=== PATIENT | male | born 1945 | race Caucasian/White ===

== ENCOUNTER 2023-10-03 13:00 | Outpatient (CLI) | payer MEDICARE, OTHER ==
--- NOTE | 2023-10-03 13:58 | Sleep Patient Instructions ---
Sleep Center Visit Summary - Patient Visit Information Reason for Visit: Initial consult for evaluation of sleep disordered breathing and other sleep issues. - Patient Instructions Instructions Attached: Sleep Study Additional Instructions: You will be completing a sleep study, either an in-lab polysomnography (PSG) or home sleep study (HST). You will follow-up in the sleep care office after the sleep study is completed to hear the results and talk about therapy, if needed. You will be called by our office staff to schedule this appointment, but you may contact us with any questions. - Clinic Information Contact: [facility] [address] [place] [address] [email or web address] T: [phone]
--- NOTE | 2023-10-03 14:02 | SLEEP CARE CONSULTATION ---
Information from patient questionnaire entered by Kayla Ovalle. I have reviewed and concur with the information entered by Kayla Ovalle. This document represents the service I personally performed and the decisions made by me, Qian Peña ARNP. History of Present Illness Service Date and Time: 10/03/2023 1300 Reason for Visit: New patient Chief Complaint: reports: Other (Anel RICHMOND OF [facility] RECOMENDED THE VISIT ) Usual bedtime: 2200 Time it takes to fall asleep: 30MINS Snores at night: No Observed to quit breathing while asleep: No Sleeps alone due to snoring: No Number of times waking at night: 4 Reasons for waking at night: reports: Bathroom, Other (UNKNOWN) Toss, Turn, or Twitch while sleeping: No Recalls having dreams: Yes Usually gets out of bed at: [id number] Feels refreshed in the morning: Yes Morning headache: No Sleepy or fatigued during the day: No Ever fallen asleep while driving: No Takes day naps: No Prior sleep studies: No Additional HPI information: I had the pleasure of seeing SANTANA JOSEPH today regarding the possibility of him having a sleep disorder. He comes at the behest of his PA, Demetrius Richmond, of [facility]. He has high blood pressure and he is thinking his sleep could be contributing to his hypertension. The patient tells me that he normally goes to bed around 10 pm, and it takes him approximately 30 minutes or less to fall asleep. He has not been told that he snores loudly and irregularly at night. He has not been observed to stop breathing in his sleep. He can recall waking up on the average of 4+ times during the night. Most of the time he wakes up because of bathroom and unknown reasons. He has not awakened for his own snoring, choking, and having to gasp for air. There is not a lot of tossing and turning in his sleep. Generally he can recall having dreams. He usually wakes up at [id number] and mostly feels refreshed. He usually does not have a morning headache. During the day he does not feel sleepy and fatigued. He has never fallen asleep while driving nor has any accident due to sleepiness. He usually does not take naps during the day. If he naps, upon falling asleep during the day he admits to having dreams. There is no somniloquy (sleep talking) or somnambulism (sleep walking). He denies having impaired concentration during the day. - Parasomnia Symptoms Ever been unable to move upon waking from sleep: No Walks in sleep: No Talks in sleep: No Ever acted out dreams in sleep: No Ever felt weak in the knees when startled or emotional: No Bothered by creepy, crawly, restless sensations in legs: No Problems with memory or concentration: No Subjective Initial [place] Sleepiness Scale score: 3 (09/25/23) Past Medical History Past Medical History: reports: Hypertension, Other (HYPERLIPDEMIA; cataracts) Social History The patient's occupation is a RE. Patient is Single and lives in . Have you smoked in the past 12 months: No Alcohol use: Yes Alcohol amount and frequency: 4 GLASSES WINE DAILY Caffeine use: Yes Caffeine amount and frequency: 700 ML COFFEE DAILY Family History Family history of sleep disordered breathing: Yes Family Hx Sleep Apnea: Father: Snoring Allergies and Home Medications Known drug allergies: No Drug allergies reviewed: Yes Home medication list reviewed: Yes (as listed) Allergy and home medication list: Allergies No Known Drug Allergies Allergy (Verified 09/29/23 13:24) Medications: Hydrochlorothiazide 12.5 mg daily Amlodipine 5 mg daily Telmisartan 80 mg daily Rosuvastatin 40 mg daily Prednisolone suspension 1% eye drop, 3-4 times a day Latanoprost solution 0.005% eye drops nightly Review of Systems Weight gain over past 5 years: 20 Cardiovascular: reports: high blood pressure Gastrointestinal: denies: heartburn Neurological: denies: headaches, head trauma Psychiatric: denies: anxiety, depression Ear/Nose/Throat: denies: injury to nose, tonsillectomy Immunologic: reports: allergies to food or environment (occasional tree pollen) Physical Exam Vital signs obtained and entered by: QIAN NEGRON Blood Pressure: 112/58 Cuff size: long (left arm) Heart Rate: 73 O2 Saturation: 98 Height: 5 ft 8 in Weight: 276 lb Body Mass Index: 41.9 BMI Classification: Morbidly Obese Neck circumference: 20 Mouth and throat: narrow oropharynx Soft palate: long Hard palate: normal Uvula: normal Uvula visualization: 0% Mallampati Class IV Tongue: enlarged in size with teeth weir on lateral edges Tonsils: 1+ Neck: normal w/o lymphadenopathy or thyromegaly Heart: regular rate and rhythm Lungs: clear bilaterally Impression and Plan 1. Suspected Obstructive Sleep Apnea-Hypopnea Syndrome, as suggested by a history of frequent awakening during the night, unrefreshed sleep, and hypertension. Narrow oropharynx and obesity are common predisposing factors for obstructive sleep apnea-hypopnea syndrome. I recommend proceeding to kat ysomnography to confirm the diagnosis and to assess severity. If the patient has significant sleep disordered breathing, a manual CPAP titration study will also be performed to find the optimal treatment pressure. I informed the patient of what the sleep studies involve and after some discussion, obtained agreement to proceed. The pathophysiology of obstructive sleep apnea-hypopnea syndrome was di scussed with the patient and health risks of cardiovascular and cerebrovascular disease if not treated. Risks of drowsy driving discussed in detail and patient advised to avoid long distance driving and to tack puller at the first sign of drowsiness. Patient agreed to plan. * Schedule polysomnography * Avoid long distance driving or driving when feeling sleepy. * Avoid alcohol, sedative and muscle relaxant around bedtime. * Attempt to lose weight. * Review instructions provided by trained office staff on how to prepare for the sleep study. * Return for follow-up after sleep study completed. Plan: PSG and follow up Visit Type: In Office Time Spent with Patient (minutes): 33 Provider Statement: I spent 100% of the Face to Face Visit with the patient with greater than 50% spent counseling the patient and coordination of care.
[2023-10-03 14:06] VITALS: BP 112/58; O2SAT 98
== END 2023-10-03 13:01 | disposition home or self-care (01) ==
LOC: SC 13:00
PROVIDERS: ATTEND Nurse Practitioner Family
DX: G47.8 Other sleep disorders (principal); I10 Essential (primary) hypertension; E66.01 Morbid (severe) obesity due to excess calories; Z68.41 Body mass index [BMI] 40.0-44.9, adult
CPT/HCPCS: 99203; G0463; 99212

== ENCOUNTER 2023-10-31 20:40 | Outpatient (CLI) | payer MEDICARE, OTHER | END 2023-10-31 20:41 | disposition home or self-care (01) | LOC: SC 20:40 | PROVIDERS: ATTEND Nurse Practitioner Family | DX: G47.8 Other sleep disorders (principal); R09.02 Hypoxemia; E66.01 Morbid (severe) obesity due to excess calories; I10 Essential (primary) hypertension | CPT/HCPCS: 95810 ==

== ENCOUNTER 2023-11-29 09:43 | Outpatient (CLI) | payer MEDICARE, OTHER ==
--- NOTE | 2023-11-29 10:08 | Sleep Patient Instructions ---
Sleep Center Visit Summary - Patient Visit Information Reason for Visit: Sleep study follow-up - Patient Instructions Additional Instructions: Your sleep study today was negative for significant sleep disordered breathing. You were found to have episodes of snoring. You were found to have mild hypoxemia and should follow up with PCP for further evaluation. Follow-up as needed. - Clinic Information Contact: [facility] [address] [place] [address] [email or web address] T: [phone]
--- NOTE | 2023-11-29 10:11 | SLEEP CARE CONSULTATION ---
Information from patient questionnaire entered by Kayla Ovalle. I have reviewed and concur with the information entered by Kayla Ovalle. This document represents the service I personally performed and the decisions made by , Qian Peña ARNP. History of Present Illness Service Date and Time: 11/29/2023 0943 Initial [place] Sleepiness Scale score: 3 (09/25/23) Current [place] Sleepiness Scale score: 1 (11/29/23) Additional HPI information: SANTANA JOSEPH returns for follow up and results of the recently performed polysomnography done on 10/31/2023. The patient was informed of the following findings: No significant sleep diso rdered breathing with an average AHI of 3.2 and yazmin oxygen saturation of 84%. I explained the pathophysiology behind obstructive sleep apnea. Patient does not have sleep apnea and was advised how weight gain could increase the risk of developing sleep apnea in the future. I strongly encouraged the patient to lose weight. Patient has light snoring. Snoring can be reduced by weight loss. Patient counseled not drink alcohol less than 4 hours before bedtime as it can increase snoring and apnea. Patient was cautioned about risks of drowsy driving until sleepiness symptoms resolve. Patient denies drowsy driving. Sleep Study - Results Type of Sleep Study: Polysomnography (COMPLETED 10/31/23) Prior sleep studies: No Polysomnography/Home Sleep Study results: IMPRESSION: The quality of the study is good. The patient had reduced sleep efficiency due to two prolonged awakenings during the night. The sleep architecture was abnormal for sleep fragmentation and reduced amount of time spent in REM and slow wave sleep (N3). Respiratory monitoring showed no significant sleep disordered breathing (AHI = 3.2). There was mild hypoxia (yazmin oxygen saturation of 84%). The patient slept adequately in supine position (supine AHI = 1.6; non-supine = 3.84). Snore was very light in intensity. There was no significant periodic leg movement of sleep. Cardiac rhythm was normal sinus rhythm without significant arrhythmia. No abnormal behavior (parasomnia) observed during the night. CONCLUSIONS and RECOMMENDATIONS: 1. Hypoxemia ICD R09.02, mild, due to low baseline oxygen saturation. Further evaluation of hypoxemia is recommended. Consider underlying cardiopulmonary disorders. This sleep study may be used to qualify the patient for home oxygen therapy at night because the total cumulative time with oxygen saturation at or below 88% is > 5 minutes. Allergies and Home Medications Known drug allergies: No Drug allergies reviewed: Yes Home medication list reviewed: Yes (no changes) Allergy and home medication list: Allergies No Known Drug Allergies Allergy Review of Systems Review of systems same as previous: Yes (NO CHANGE) Physical Exam Vital signs obtained and entered by: KAYLA Santiago MA Blood Pressure: 179/66 (RIGHT ARM) Cuff size: long Heart Rate: 69 O2 Saturation: 99 Height: 5 ft 8 in Weight: 281 lb 12.8 oz Body Mass Index: 42.8 BMI Classification: Morbidly Obese Impression and Plan 1. Hypoxemia, mild, with a yazmin oxygen saturation of 84% and 21.8 minutes spent under 90%. The baseline oxygen saturation was low normal with an average oxygen saturation of 91%. I advised him that he should follow-up with his primary provider for further evaluation as this could be indicator of cardiopulmonary issues. He voiced understanding. 2. Obesity, unspecified. Currently patients BMI is 42.8. Obesity increases the risk of apnea, CPAP pressure requirements and overall health risks especially cardiovascular and diabetes. Thus patient is advised to lose weight. * Follow up with PCP for hypoxemia * Attempt to lose weight * Avoid alcohol consumption near bedtime * Return as needed for follow up. Counseling Topics: Weight loss health impact Follow up with Sleep Care in: as needed Visit Type: In Office Time Spent with Patient (minutes): 13 Provider Statement: I spent 100% of the Face to Face Visit with the patient with greater than 50% spent counseling the patient and coordination of care.
[2023-11-29 10:24] VITALS: BP 179/66; O2SAT 99
== END 2023-11-29 09:44 | disposition home or self-care (01) ==
LOC: SC 09:43
PROVIDERS: ATTEND Nurse Practitioner Family
DX: R09.02 Hypoxemia (principal); E66.01 Morbid (severe) obesity due to excess calories; Z68.41 Body mass index [BMI] 40.0-44.9, adult
CPT/HCPCS: 99212; G0463